=== PATIENT | female | born 1955 | race Caucasian/White ===

== ENCOUNTER → 2024-08-08 | Outpatient (CLI) | payer MEDICARE ==
--- NOTE | 2024-08-08 10:25 | CT ---
EXAMINATION TYPE: CT brain wo con DATE OF EXAM: 08/08/2024 9:10 AM COMPARISON: None. CLINICAL INDICATION: Female, 68 years old with history of R47.89 SPEECH CHANGES, change in memory. TECHNIQUE: Brain: Axial CT images of the brain were obtained with coronal and sagittal reformats created and rev iewed. Contrast used: None. Oral contrast used: None. CT DLP: 1165 mGycm, Automated exposure control for dose reduction was used. FINDINGS: Brain: Extra-axial spaces: No abnormal extra-axial fluid collections. Ventricular system: Dilatation in proportion to cerebral atrophy. Cerebral parenchyma: Hypodense area near the left caudate nucleus similar to the anterior limb of the internal capsule. Cerebral atrophy. No acute intraparenchymal hemorrhage or mass effect. The egan-w jenifer junction is well differentiated. Cerebellum: Unremarkable. Mass effect: No evidence of midline shift. Intracranial vasculature: unremarkable Soft tissues: Normal. Calvarium/osseous structures: No depressed skull fracture. Paranasal sinuses and mastoid air cells: Mild scattered paranasal sinus disease. Visualized orbits: Orbital contents are intact. Enhancing right superficial parotid gland mass measuring 19 mm IMPRESSION: 1. No acute intracranial process. 2. Enhancing right superficial parotid gland mass measuring 19 mm further evaluation with ultrasound and possibly disuse sampling recommended. 3. Nonspecific white matter changes, likely secondary to chronic small vessel ischemic disease. 4. Remote left anterior limb of the internal capsule/caudate nucleus injury. [facility], , 08/08/2024 10:22 AM
== END | disposition home or self-care (01) ==
LOC: RADCTMAIN 08:48
PROVIDERS: ATTEND Family Medicine
DX: R47.89 Other speech disturbances (principal); R90.82 White matter disease, unspecified
CPT/HCPCS: 70450

== ENCOUNTER → 2024-11-07 | Outpatient (CLI) | payer MEDICARE ==
--- NOTE | 2024-11-07 15:34 | US ---
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 Hx HTN Additional History: .... TECHNIQUE: Grayscale, color Doppler and spectral Doppler evaluation of the bilateral carotid systems and vertebral arteries. Indirect Doppler criteria was utilized. FINDINGS: EXAM MEASUREMENTS: RIGHT: Peak Systolic Velocity (PSV) cm/sec ----- Right CCA: 78 ----- Right ICA: 59 ----- Right ECA: 103 ICA/CCA ratio: 0.8 RIGHT: End Diastole cm/sec ----- Right CCA: 15 ----- Right ICA: 23 ----- Right ECA: 14 LEFT: Peak Systolic Velocity (PSV) cm/sec ----- Left CCA: 63 ----- Left ICA: 63 ----- Left ECA: 87 ICA/CCA ratio: 1.1 LEFT: End Diastole cm/sec ----- Left CCA: 13 ----- Left ICA: 12 ----- Left ECA: 14 VERTEBRALS (direction of flow): Right Vertebral: Antegrade Left Vertebral: Antegrade Rhythm: Normal [employer] NOTES: No intimal thickening, plaque, or elevated velocities see. Incidental - multiple rounded, hypoechoic ? lymph nodes seen right lateral neck. Color Doppler imaging shows patency with blood flow throughout the carotid artery. Spectral waveforms are within normal limits. IMPRESSION: Right: No hemodynamically significant stenosis. Left: No hemodynamically significant stenosis. Criteria for Assigning % of Stenosis / Diameter reduction (Estimation based on the indirect measurements of the internal carotid artery velocities (ICA PSV). 1. Normal (no stenosis)=ICA PSV < 125 cm/s: ratio < 2.0: ICA EDV<40 cm/s. 2. Less than 50% stenosis=ICA PSV < 125 cm/s: ratio < 2.0: ICA EDV<40 cm/s. 3. 50 to 69% stenosis=ICA PSV of 125 to 230 cm/s: ration 2.0 ? 4.0: ICA EDV 40-100 cm/s. 4. Greater than 70% stenosis to near occlusion= ICA PSV > 230 cm/s: ratio > 4.0: ICA EDV > 100 cm/s. 5. Near occlusion= ICA PSV velocities may be low or undetectable: variable ratio and ICA EDV. 6. Total occlusion=unable to detect flow. [facility], , 11/07/2024 3:31 PM
== END | disposition home or self-care (01) ==
LOC: RADUSWWP 14:51
PROVIDERS: ATTEND Psychiatry & Neurology Neurology
DX: F80.1 Expressive language disorder (principal); Z86.73 Personal history of transient ischemic attack (TIA), and cerebral infarction without residual deficits
CPT/HCPCS: 93880